=== PATIENT | male | born 1980 | race Caucasian/White ===

== ENCOUNTER 2017-07-15 18:37 | Emergency (ER) | payer OTHER ==
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
[2017-07-15] MEDS ORDERED: PROPARACAINE 0.5% 15 ML OPHT DROP ONE (20:10)
[2017-07-15] MEDS ORDERED: FLUORESCEIN SODIUM 1 MG STRIP OP ONE (20:10)
[2017-07-15] MEDS ORDERED: IBUPROFEN 200 MG TAB PO ONE (20:19)
[2017-07-15 20:26] VITALS: RESP 18
[2017-07-15 21:02] VITALS: BP 132/79; PULSE 90; TEMP 98.6; O2SAT 95
== END 2017-07-15 20:50 | disposition home or self-care (01) ==
DX: S43.101A Unspecified dislocation of right acromioclavicular joint, initial encounter (principal); S80.211A Abrasion, right knee, initial encounter; V18.2XXA Unspecified pedal cyclist injured in noncollision transport accident in nontraffic accident, initial encounter; Y99.8 Other external cause status; Y93.39 Activity, other involving climbing, rappelling and jumping off
CPT/HCPCS: A4565